=== PATIENT | male | born 1990 | race Two or more races ===

== ENCOUNTER 2017-07-05 13:06 | Emergency (ER) | payer OTHER ==
[~2017-07-05] VITALS: Ht 167.6 cm; Wt 71.0 kg
[2017-07-05 13:08] VITALS: BP 126/80
[2017-07-05] MEDS ORDERED: DIAZEPAM 5 MG TABLET PO ONE (14:00)
[2017-07-05] MEDS ORDERED: KETOROLAC 30 MG/1 ML IM ONE ×2 (14:00→15:30)
[2017-07-05] MEDS ORDERED: KETOROLAC 30 MG/1 ML ONE (15:15)
== END 2017-07-05 15:35 | disposition home or self-care (01) ==
LOC: ED 15:29
DX: S39.012A Strain of muscle, fascia and tendon of lower back, initial encounter (principal); S29.012A Strain of muscle and tendon of back wall of thorax, initial encounter; V49.9XXA Car occupant (driver) (passenger) injured in unspecified traffic accident, initial encounter; Y93.89 Activity, other specified; Y92.488 Other paved roadways as the place of occurrence of the external cause; Y99.8 Other external cause status
CPT/HCPCS: 72072; 72110; 96372; 99284; J1885

== ENCOUNTER 2018-04-25 22:16 | Emergency (ER) | payer OTHER ==
[~2018-04-25] VITALS: Ht 167.6 cm; Wt 68.2 kg
[2018-04-25] MEDS ORDERED: ONDANSETRON 2MG/ML, 2ML ONE (23:27)
[2018-04-25] MEDS ORDERED: KETOROLAC 30 MG/1 ML ONE (23:27)
[2018-04-25] MEDS ORDERED: METOCLOPRAMIDE 5 MG/ML, 2ML ONE (23:27)
[2018-04-25] MEDS ORDERED: SODIUM CHLORIDE FLUSH 10ML SYR IVF ONE (23:30)
[2018-04-25] MEDS ORDERED: KETOROLAC 30 MG/1 ML IVPush ONE (23:30)
[2018-04-25] MEDS ORDERED: ONDANSETRON 2MG/ML, 2ML IVPush ONE (23:30)
[2018-04-25] MEDS ORDERED: METOCLOPRAMIDE 5 MG/ML, 2ML IVPush ONE (23:30)
[2018-04-25] MEDS ORDERED: SODIUM CHLORIDE 0.9% 1,000ML IVBOLUS ONE (23:30)
[2018-04-25 23:37] LABS: RAPID INFLUENZA A Negative (Negative); RAPID INFLUENZA B Negative (Negative)
[2018-04-25 23:39] LABS: BASOPHILS # (AUTO) 0.02 x10^3/uL (0-0.1); BASOPHILS % (AUTO) 0 % (0-1); EOSINOPHILS % (AUTO) 2 % (1-7); LYMPHOCYTES # (AUTO) 1.94 x10^3/uL (1-3.4); LYMPHOCYTES % (AUTO) 29 % (22-44); MD NO; MEAN CORPUSCULAR HEMOGLOBIN 31.7 pg (27.5-34.5); MEAN CORPUSCULAR HGB CONC 34.1 g/dL (33.2-36.2); MEAN CORPUSCULAR VOLUME 93.1 fL (81-97); MEAN PLATELET VOLUME 9.5 fL (7.4-10.4); MONOCYTES # (AUTO) 0.52 x10^3/uL (0.2-0.8); MONOCYTES % (AUTO) 8 % (2-9); NEUTROPHILS # (AUTO) 4.04 x10^3/uL (1.8-6.8); NEUTROPHILS % (AUTO) 61 % (42-75); PLATELET COUNT 203 x10^3/uL (130-400); RED BLOOD COUNT 5.43 x10^6/uL (4.38-5.82); RED CELL DISTRIBUTION WIDTH 12.4 % (9.4-14.8)
[2018-04-25 23:46] LABS: ALANINE AMINOTRANSFERASE 32 U/L (12-78); ALBUMIN 4.3 g/dL (3.4-5.0); ANION GAP 7 mmol/L (5-15); CALCIUM 8.9 mg/dL (8.5-10.1); CHLORIDE 107 mmol/L (98-107)
[2018-04-25 23:51] LABS: ALKALINE PHOSPHATASE 88 U/L (45-117); BILIRUBIN,TOTAL 0.8 mg/dL (0.2-1.0); TOTAL PROTEIN 8.2 g/dL (6.4-8.2); TROPONIN I < 0.015 ng/mL (0.000-0.045)
[2018-04-26 00:14] LABS: MICROSCOPIC AUTO
[2018-04-26 00:23] LABS: CULTURE INDICATED? NO
[2018-04-26 00:30] VITALS: BP 128/72
== END 2018-04-26 00:35 | disposition home or self-care (01) ==
LOC: ED 04-26 00:17
DX: B34.9 Viral infection, unspecified (principal); E86.0 Dehydration; R07.89 Other chest pain
CPT/HCPCS: 36415; 71046; 80053; 81001; 84484; 85025; 87400; 93005; 96361; 96374; 96375; 99285; J1885; J2405; J2765; J7030